=== PATIENT | male | born 1960 | race Caucasian/White ===

== ENCOUNTER 2017-04-17 23:40 | Emergency (ER) | payer OTHER ==
[~2017-04-17] VITALS: Ht 175.3 cm; Wt 74.0 kg
[~2017-04-17 23:40] MED LIST: Z.0.NO CURRENT MEDS
[2017-04-17 23:41] VITALS: BP 147/80; PULSE 89; RESP 16; TEMP 98.1; O2SAT 95
[2017-04-18] MEDS ORDERED: PHENYLEPHRINE HCL 2.5% OPTH SOLN 2 ML BTL LEFT EYE ONE (00:30)
[2017-04-18] MEDS ORDERED: TROPICAMIDE 1% OPHT SOLN 15 ML BTL EACH EYE ONE (00:30)
[2017-04-18] MEDS ORDERED: PROPARACAINE HCL 0.5% OPHT SOLN 15 ML BTL EACH EYE ONE (00:45)
--- NOTE | 2017-04-18 00:56 | PD ---
HPI Chief Complaint: Eye Problems/Injury Time Seen by Provider: 00:16 Travel History International Travel<30 days: No Contact w/Intl Traveler<30days: No Traveled to known affect area: No History of Present Illness HPI So 57-year-old man who presents emergency Department abrupt onset of painless visual loss in his left eye yesterday afternoon. States initially he saw some squiggles in his visual field and then had blurry smoky vision since then. He had Lasik many years ago, but no other eye problems. No known medical history. No other complaints. History Past Medical History Medical History: Denies Significant Hx Past Surgical History Surgical History: No Previous Surgery Social History Alcohol Use: No Tobacco Use: No Allergies-Medications (Allergen,Severity, Reaction): Coded Allergies: No Known Allergies (Verified , TRAUMA, 04/17/17) Reported Meds & Prescriptions Reported Meds & Active Scripts Active No Active Prescriptions or Reported Medications Review of Systems Except as stated in HPI: all other systems reviewed are Neg Physical Exam Narrative GENERAL: Well-appearing 57-year-old man, no acute distress. SKIN: Focused skin assessment warm/dry. HEAD: Atraumatic. Normocephalic. EYES: Pupils equal and round. No scleral icterus or injection. Intraocular pressures 13 on the left lobe on the right. Bright light exam is unremarkable. Dilated funduscopic exam on the right is unremarkable, on the left shows red cloudy numbness without clearly visible retinal findings. Bedside ultrasound shows wavy hyperechoic findings in the posterior chamber, adjacent to the retina possibly detached retina versus septations from bleeding. ENT: No nasal bleeding or discharge. Mucous membranes pink and moist. NECK: Trachea midline. No JVD. CARDIOVASCULAR: Regular rate and rhythm. No murmur appreciated. RESPIRATORY: No accessory muscle use. Clear to auscultation. Breath sounds equal bilaterally. GASTROINTESTINAL: Abdomen soft, non-tender, nondistended. Hepatic and splenic margins not palpable. MUSCULOSKELETAL: No obvious deformities. No clubbing. No cyanosis. No edema. NEUROLOGICAL: Awake and alert. No obvious cranial nerve deficits. Motor grossly within normal limits. Normal speech. PSYCHIATRIC: Appropriate mood and affect; insight and judgment normal. Data Data Last Documented VS Vital Signs Date Time Temp Pulse Resp B/P (MAP) Pulse Ox O2 Delivery O2 Flow Rate FiO2 04/17/17 23:41 98.1 89 16 147/80 (102) 95 Room Air Orders Orders Phenylephrine 2.5% Opth Soln (Mydfrin 2. (04/18/17 00:30) Tropicamide 1% Opth Soln (Mydriacyl 1% O (04/18/17 00:30) Proparacaine 0.5% Opth Soln (Alcaine 0.5 (04/18/17 00:45) Ed Poc Ultrasound (04/18/17 ) [facility] Medical Decision Making Medical Screen Exam Complete: Yes Emergency Medical Condition: Yes Differential Diagnosis CRVO, CRAO, vitreous hemorrhage, retinal detachment, other Narrative Course Medical decision making 87-year-old male painless loss of vision in the left eye, finger counting at a few feet only, this is likely retinal detachment or vitreous hemorrhage, favor vitreous hemorrhage. Both of these etiologies needed urgent but not emergent follow-up. Discussed transfer to [facility]. We did place 1 called the carbide grinder which was not immediately returned. Discussed waiting for follow-up call versus close outpatient follow-up. Patient is agreeable to close outpatient follow-up. Diagnosis Primary Impression: Vision loss, left eye Referrals: Geraldine Zapata MD 2 days Additional Instructions: Follow-up with Dr. Zapata on Wednesday. Return to the emergency department for any worsening symptoms. Med/Other Pt SpecificInfo: No Change to Meds Scripts No Active Prescriptions or Reported Meds Disposition: 01 DISCHARGE HOME Condition: Stable Julio Hooper MD Apr 18, 2017 00:56
--- NOTE | 2017-04-18 00:56 | PD ---
HPI Chief Complaint: Eye Problems/Injury Time Seen by Provider: 00:16 Travel History International Travel<30 days: No Contact w/Intl Traveler<30days: No Traveled to known affect area: No History of Present Illness HPI So 57-year-old man who presents emergency Department abrupt onset of painless visual loss in his left eye yesterday afternoon. States initially he saw some squiggles in his visual field and then had blurry smoky vision since then. He had Lasik many years ago, but no other eye problems. No known medical history. No other complaints. History Past Medical History Medical History: Denies Significant Hx Past Surgical History Surgical History: No Previous Surgery Social History Alcohol Use: No Tobacco Use: No Allergies-Medications (Allergen,Severity, Reaction): Coded Allergies: No Known Allergies (Verified , TRAUMA, 04/17/17) Reported Meds & Prescriptions Reported Meds & Active Scripts Active No Active Prescriptions or Reported Medications Review of Systems Except as stated in HPI: all other systems reviewed are Neg Physical Exam Narrative GENERAL: Well-appearing 57-year-old man, no acute distress. SKIN: Focused skin assessment warm/dry. HEAD: Atraumatic. Normocephalic. EYES: Pupils equal and round. No scleral icterus or injection. Intraocular pressures 13 on the left lobe on the right. Bright light exam is unremarkable. Dilated funduscopic exam on the right is unremarkable, on the left shows red cloudy numbness without clearly visible retinal findings. Bedside ultrasound shows wavy hyperechoic findings in the posterior chamber, adjacent to the retina possibly detached retina versus septations from bleeding. ENT: No nasal bleeding or discharge. Mucous membranes pink and moist. NECK: Trachea midline. No JVD. CARDIOVASCULAR: Regular rate and rhythm. No murmur appreciated. RESPIRATORY: No accessory muscle use. Clear to auscultation. Breath sounds equal bilaterally. GASTROINTESTINAL: Abdomen soft, non-tender, nondistended. Hepatic and splenic margins not palpable. MUSCULOSKELETAL: No obvious deformities. No clubbing. No cyanosis. No edema. NEUROLOGICAL: Awake and alert. No obvious cranial nerve deficits. Motor grossly within normal limits. Normal speech. PSYCHIATRIC: Appropriate mood and affect; insight and judgment normal. Data Data Last Documented VS Vital Signs Date Time Temp Pulse Resp B/P (MAP) Pulse Ox O2 Delivery O2 Flow Rate FiO2 04/17/17 23:41 98.1 89 16 147/80 (102) 95 Room Air Orders Orders Phenylephrine 2.5% Opth Soln (Mydfrin 2. (04/18/17 00:30) Tropicamide 1% Opth Soln (Mydriacyl 1% O (04/18/17 00:30) Proparacaine 0.5% Opth Soln (Alcaine 0.5 (04/18/17 00:45) Ed Poc Ultrasound (04/18/17 ) [facility] Medical Decision Making Medical Screen Exam Complete: Yes Emergency Medical Condition: Yes Differential Diagnosis CRVO, CRAO, vitreous hemorrhage, retinal detachment, other Narrative Course Medical decision making 87-year-old male painless loss of vision in the left eye, finger counting at a few feet only, this is likely retinal detachment or vitreous hemorrhage, favor vitreous hemorrhage. Both of these etiologies needed urgent but not emergent follow-up. Discussed transfer to [facility]. We did place 1 called the neuropsychologist which was not immediately returned. Discussed waiting for follow-up call versus close outpatient follow-up. Patient is agreeable to close outpatient follow-up. Diagnosis Primary Impression: Vision loss, left eye Referrals: Geraldine Zapata MD 2 days Additional Instructions: Follow-up with Dr. Zapata on Wednesday. Return to the emergency department for any worsening symptoms. Med/Other Pt SpecificInfo: No Change to Meds Scripts No Active Prescriptions or Reported Meds Disposition: 01 DISCHARGE HOME Condition: Stable Julio Hooper MD Apr 18, 2017 00:56
--- NOTE | 2017-04-18 00:56 | PD ---
HPI Chief Complaint: Eye Problems/Injury Time Seen by Provider: 00:16 Travel History International Travel<30 days: No Contact w/Intl Traveler<30days: No Traveled to known affect area: No History of Present Illness HPI So 57-year-old man who presents emergency Department abrupt onset of painless visual loss in his left eye yesterday afternoon. States initially he saw some squiggles in his visual field and then had blurry smoky vision since then. He had Lasik many years ago, but no other eye problems. No known medical history. No other complaints. History Past Medical History Medical History: Denies Significant Hx Past Surgical History Surgical History: No Previous Surgery Social History Alcohol Use: No Tobacco Use: No Allergies-Medications (Allergen,Severity, Reaction): Coded Allergies: No Known Allergies (Verified , TRAUMA, 04/17/17) Reported Meds & Prescriptions Reported Meds & Active Scripts Active No Active Prescriptions or Reported Medications Review of Systems Except as stated in HPI: all other systems reviewed are Neg Physical Exam Narrative GENERAL: Well-appearing 57-year-old man, no acute distress. SKIN: Focused skin assessment warm/dry. HEAD: Atraumatic. Normocephalic. EYES: Pupils equal and round. No scleral icterus or injection. Intraocular pressures 13 on the left lobe on the right. Bright light exam is unremarkable. Dilated funduscopic exam on the right is unremarkable, on the left shows red cloudy numbness without clearly visible retinal findings. Bedside ultrasound shows wavy hyperechoic findings in the posterior chamber, adjacent to the retina possibly detached retina versus septations from bleeding. ENT: No nasal bleeding or discharge. Mucous membranes pink and moist. NECK: Trachea midline. No JVD. CARDIOVASCULAR: Regular rate and rhythm. No murmur appreciated. RESPIRATORY: No accessory muscle use. Clear to auscultation. Breath sounds equal bilaterally. GASTROINTESTINAL: Abdomen soft, non-tender, nondistended. Hepatic and splenic margins not palpable. MUSCULOSKELETAL: No obvious deformities. No clubbing. No cyanosis. No edema. NEUROLOGICAL: Awake and alert. No obvious cranial nerve deficits. Motor grossly within normal limits. Normal speech. PSYCHIATRIC: Appropriate mood and affect; insight and judgment normal. Data Data Last Documented VS Vital Signs Date Time Temp Pulse Resp B/P (MAP) Pulse Ox O2 Delivery O2 Flow Rate FiO2 04/17/17 23:41 98.1 89 16 147/80 (102) 95 Room Air Orders Orders Phenylephrine 2.5% Opth Soln (Mydfrin 2. (04/18/17 00:30) Tropicamide 1% Opth Soln (Mydriacyl 1% O (04/18/17 00:30) Proparacaine 0.5% Opth Soln (Alcaine 0.5 (04/18/17 00:45) Ed Poc Ultrasound (04/18/17 ) [facility] Medical Decision Making Medical Screen Exam Complete: Yes Emergency Medical Condition: Yes Differential Diagnosis CRVO, CRAO, vitreous hemorrhage, retinal detachment, other Narrative Course Medical decision making 87-year-old male painless loss of vision in the left eye, finger counting at a few feet only, this is likely retinal detachment or vitreous hemorrhage, favor vitreous hemorrhage. Both of these etiologies needed urgent but not emergent follow-up. Discussed transfer to [facility]. We did place 1 called the mixed crop and livestock farmer which was not immediately returned. Discussed waiting for follow-up call versus close outpatient follow-up. Patient is agreeable to close outpatient follow-up. Diagnosis Primary Impression: Vision loss, left eye Referrals: Geraldine Zapata MD 2 days Additional Instructions: Follow-up with Dr. Zapata on Wednesday. Return to the emergency department for any worsening symptoms. Med/Other Pt SpecificInfo: No Change to Meds Scripts No Active Prescriptions or Reported Meds Disposition: 01 DISCHARGE HOME Condition: Stable Julio Hooper MD Apr 18, 2017 00:56
== END 2017-04-18 02:43 | disposition home or self-care (01) ==
LOC: NEPD 23:40
DX: H53.132 Sudden visual loss, left eye (principal)
CPT/HCPCS: 99283